=== PATIENT | male | born 1965 | race Caucasian/White ===

== ENCOUNTER 2018-12-02 12:12 | Emergency (ER) | payer BC ==
[~2018-12-02] VITALS: Ht 175.2 cm; Wt 102.1 kg
--- NOTE | ~2018-12-02 | EKG ---
[place], [place] ELECTROCARDIOGRAM REPORT NAME: PHILOMENA VÁSQUEZ UNIT #: [id number] ROOM: DOCTOR: RAYMUNDO DRAFT REPORT BIRTHDATE: [birth year] [facility] Test Date: 2018-12-02 Test Time: 12:51:45 Pat Name: PHILOMENA VÁSQUEZ Department: Room: Gender: M Brick Off Bearer: [place] : 1965 Requested By: JEAN PIERRE WHITTEN Order Number: [id number] Reading MD: Tony Sterling MD Measurements Intervals [place] Rate: 78 P: 20 CT: 152 QRS: 33 QRSD: 82 T: 38 QT: 388 QTc: 442 Interpretive Statements Sinus rhythm NormalECG No previous ECG available for comparison Electronically Signed On 12-03-2018 9:11:04 PDT by Tony Sterling MD CM:EKGRPT:ELECTROCARDIOGRAM REPORT [id number] JEAN PIERRE LYNCH DRAFT REPORT JEAN PIERRE WHITTEN DO
[2018-12-02] MEDS ORDERED: COZAAR100 MG PO (12:25)
[2018-12-02 12:52] LABS: BASO % 0.4 % (0.0-1.0); EOS # 0.1 10*3/uL (0.0-0.4); EOS % 1.9 % (1.0-4.0); HEMATOCRIT 42.3 % (42.0-52.0); HEMOGLOBIN 14.6 g/dl (14.0-18.0); LYMPH # 1.5 10*3/uL (1.3-4.4); LYMPH % 21.3 % (27.0-41.0); MEAN CELL VOLUME 91.6 fl (80.0-94.0); MEAN CORPUSCULAR HGB 31.6 pg (27.0-31.0); MEAN CORPUSCULAR HGB CONC 34.5 g/dl (33.0-37.0); MEAN PLATELET VOLUME 8.8 fl (9.6-12.3); MONO # 0.6 10*3/uL (0.1-1.0); MONO % 9.3 % (3.0-9.0); NEUT # 4.6 10*3/uL (2.3-7.9); NEUT % 66.8 % (47.0-73.0); PLATELET COUNT AUTOMATED 200 10*3/uL (130-400); RED BLOOD COUNT 4.62 10*6/uL (4.50-5.90); RED CELL DISTRI WIDTH 11.9 % (0-14.5); WHITE BLOOD COUNT 6.9 10*3/uL (4.8-10.8)
[2018-12-02 13:03] LABS: ACT PARTIAL THROMBO TIME 29.9 SECONDS (20.0-32.1)
[2018-12-02 13:08] LABS: ALBUMIN 3.8 gm/dl (3.1-4.5); ALKALINE PHOSPHATASE 104 U/L (45-117); BUN 19 mg/dl (7-24); CHLORIDE 109 mmol/L (98-107); CREATININE 1.54 mg/dL (0.70-1.30); LIPASE 93 U/L (73-393); POTASSIUM 3.9 mmol/L (3.5-5.1); SGOT/AST 41 IU/L (3-35); SGPT/ALT 109 U/L (12-78); SODIUM 142 mmol/L (136-145); TOTAL PROTEIN 7.3 gm/dL (6.4-8.2)
[2018-12-02 13:16] LABS: TROPONIN I < 0.015 ng/ml (<0.045)
[2018-12-02] MEDS ORDERED: NORVASC5 MG PO (15:14)
== END 2018-12-02 15:32 | disposition home or self-care (01) ==
LOC: ED 12:12
PROVIDERS: Emergency Medicine
DX: I10 Essential (primary) hypertension (principal); R42 Dizziness and giddiness; Z88.2 Allergy status to sulfonamides; Z79.899 Other long term (current) drug therapy